=== PATIENT | male | born 1990 | race African-American/Black ===

== ENCOUNTER 2020-05-13 10:16 | Emergency (ER) | payer SELFPAY ==
[~2020-05-13] VITALS: Ht 167.6 cm; Wt 64.8 kg
[2020-05-13 10:25] VITALS: BP 100/67
[2020-05-13] MEDS ORDERED: CEFTRIAXONE 250 MG IM ONE (10:30)
[2020-05-13] MEDS ORDERED: AZITHROMYCIN 500 MG TABLET PO ONE (10:30)
--- NOTE | 2020-05-13 10:35 | NUR ---
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
[2020-05-13] MEDS ORDERED: CEFTRIAXONE 1,000 MG ONE (11:59)
[2020-05-13] MEDS ORDERED: AZITHROMYCIN 250 MG TABLET ONE (12:00)
[2020-05-13] MEDS ORDERED: LIDOCAINE-MPF 1%, 2ML ONE (12:00)
--- NOTE | 2020-05-13 12:21 | NUR ---
PEST CONTROL PILOT: PT MEDICATED PER EMAR.
== END 2020-05-13 12:58 | disposition home or self-care (01) ==
LOC: ED 12:10
DX: N34.2 Other urethritis (principal); H60.501 Unspecified acute noninfective otitis externa, right ear
CPT/HCPCS: 87491; 87591; 96372; 99283; J0696

== ENCOUNTER 2020-08-16 12:54 | Emergency (ER) | payer SELFPAY ==
[~2020-08-16] VITALS: Ht 172.7 cm; Wt 62.5 kg
[2020-08-16] MEDS ORDERED: AZITHROMYCIN 500 MG TABLET PO ONE (13:30)
[2020-08-16] MEDS ORDERED: CEFTRIAXONE 250 MG IM ONE (13:30)
[2020-08-16 14:03] LABS: MICROSCOPIC INDICATED
--- NOTE | 2020-08-16 14:38 | NUR ---
OREMAN: PT AMBULATORY TO ROOM FROM LOBBY AT THIS TIME WITH STEADY GAIT WITH ASL INTERPRETERANTONIA SANCHEZ.
--- NOTE | 2020-08-16 14:49 | NUR ---
PT CAME CO PAINFUL URINATION. STARTED A WEEK AGO. HX OF STD. THINKS ITS AN STD AGAIN. GF IS GETTING TREATED FOR SAME.
[2020-08-16] MEDS ORDERED: CEFTRIAXONE 250 MG ONE (14:51)
[2020-08-16] MEDS ORDERED: AZITHROMYCIN 500 MG TABLET ONE (14:51)
[2020-08-16 15:19] VITALS: BP 130/71
== END 2020-08-16 15:21 | disposition home or self-care (01) ==
LOC: ED 15:09
DX: N34.2 Other urethritis (principal)
CPT/HCPCS: 81001; 87491; 87591; 96372; 99283; J0696